=== PATIENT | male | born 1995 | race African-American/Black ===

== ENCOUNTER 2023-09-28 09:20 | Emergency (ER) | payer MEDICAID, OTHER ==
[~2023-09-28] VITALS: Ht 182.9 cm; Wt 77.0 kg
[~2023-09-28 09:20] MED LIST: CEPH-569 PO; METF-416 MT; NALO4SPR BOTHNSTRLS; VIC PO
[2023-09-28 09:30] VITALS: TEMP 99.5; O2SAT 100
[2023-09-28 10:07] LABS: BASOPHILS % 0.4 % (0.0-2.0); HEMATOCRIT. 44.5 % (42.0-52.0); HEMOGLOBIN. 15.6 g/dL (14.0-18.0); LYMPHOCYTES % 9.4 % (20.0-50.0); MEAN CORPUSCULAR HEMOGLOBIN 31.1 pg (28.0-32.0); MEAN CORPUSCULAR HGB CONC 35.1 g/dL (31.0-37.0); MEAN CORPUSCULAR VOLUME 88.4 fL (80.0-94.0); MEAN PLATELET VOLUME 7.9 fl (7.4-10.4); MONOCYTES % 3.7 % (2.0-8.0); NEUTROPHILS % 86.5 % (40.0-76.0); PLATELET 403 x1000/uL (130-400); RED BLOOD CELL COUNT 5.03 mill/uL (4.7-6.1); RED CELL DISTRIBUTION WIDTH 12.5 % (11.6-14.6); WHITE BLOOD COUNT 7.3 x1000/uL (4.5-11.0)
[2023-09-28 10:29] LABS: ACETAMINOPHEN 2 ug/mL (10-30); CALCIUM 9.9 mg/dL (8.7-10.4); CARBON DIOXIDE 23 mEq/L (21-32); CHLORIDE 104 mEq/L (98-107); CREATININE 0.9 mg/dL (0.6-1.3); GLUCOSE 122 mg/dL (70-105); POTASSIUM 3.7 mEq/L (3.5-5.1); SODIUM 137 mEq/L (136-145); UREA NITROGEN BLOOD 14 mg/dL (9-23)
[2023-09-28] MEDS ORDERED: IBUPROFEN 600MG TABLET PO ONE (10:30)
[2023-09-28 10:43] LABS: ETHANOL BLOOD < 10 mg/dL (<10)
[2023-09-28 12:15] VITALS: BP 178/103; PULSE 87; RESP 16
[2023-09-28] MEDS ORDERED: IBUPROFEN 600MG TABLET PO SCH (12:15)
[2023-09-28] MEDS ORDERED: ALPRAZOLAM 0.25 MG TABLET PO SCH (12:15)
[2023-09-28] MEDS ORDERED: ACETAMINOPHEN 500MG TABLET PO ONE (13:00)
[2023-09-28 15:48] LABS: *AMPHETAMINES SCREEN URINE NEGATIVE (NEGATIVE); *BARBITURATES SCREEN URINE NEGATIVE (NEGATIVE); *BENZODIAZEPINES SCREEN URINE NEGATIVE (NEGATIVE); *COCAINE SCREEN URINE NEGATIVE (NEGATIVE); CANNABINOID URINE SCREEN NEGATIVE (NEGATIVE); ECSTASY MDMA SCREEN URINE NEGATIVE (NEGATIVE); METHADONE URINE SCREEN Neg (NEGATIVE); OPIATES URINE SCREEN NEGATIVE (NEGATIVE); PHENCYCLIDINE URINE SCREEN NEGATIVE (NEGATIVE)
== END 2023-09-28 13:44 | disposition home or self-care (01) ==
LOC: ER 09:20
DX: F19.90 Other psychoactive substance use, unspecified, uncomplicated (principal); F12.10 Cannabis abuse, uncomplicated; F11.10 Opioid abuse, uncomplicated; E11.9 Type 2 diabetes mellitus without complications; Z98.890 Other specified postprocedural states
CPT/HCPCS: 80305; 80048; 80307; 80329; 80320; 85025; 36415; 99283; Z7610; G0480